=== PATIENT | female | born 1930 | race Caucasian/White ===

== ENCOUNTER → 2016-12-17 | Outpatient (CLI) | payer MEDICARE, BC ==
[~2016-12-17] MED LIST: ALPHAGAN P10 ML OP; AMBIEN PO; AMBIEN10 MG PO; AMIODARONE PO; ANASTROZOLE1 MG PO; ARIMIDEX1 MG PO; ASPIRIN81 MG PO; AZITHROMYCIN250 MG PO; BENZONATATE PO; CALAN PO; CALAN SR PO; CALAN SR180 MG PO; CALCIUM; CERTAGEN PO; CHONDROTIN; CLARITIN10 MG PO; COLACE PO; CORDARONE200 M1 PO; COUMADIN PO; COUMADIN5 MG PO; COUMADIN6 MG PO; FISH OIL 1,0001 CAP PO; FISH OIL300 MG PO; FLAGYL PO; FUROSEMIDE40 MG PO; GARLIC; GARLIC OIL1 CAP PO; GARLIC TAB; GLUCOSA; GLUCOSAMINE; LIPITOR20 MG PO; LISINOPRIL PO; LISINOPRIL1 GM PO; LISINOPRIL10 MG PO; LUMIGAN; MAG-OX 400400 M1 PO; MAGNESIUM400 MG PO; METOPROLOL TAR25 MG PO; METRONIDAZOLE PO; MIRALAX17 GM PO; MIRAPEX0.125 MG PO; MORGIDOX100 MG; MULTI VITAMIN1 EACH PO; MULTI-VITAMIN1 TAB PO; MULTIVITAMIN; NEXIUM PO; NILSTAT PO; NITROFURANTOIN100 M3 PO; OYSTER CALCIUM500 MG PO; PREDNISONE10 MG/DOSE PO; TOBREX5 ML OP; TRIMPEX100 MG PO; VEGETABLE LAXA390 GM PO; VERAPAMIL ER180 MG PO; VIACTIVE; VICODIN PO; VITAMIN D-32000 UNI1 PO; XALATAN OP; XARELTO20 MG PO; ZOLOFT PO; ZOLOFT50 MG PO; ZYLOPRIM PO; ZYRTEC PO; [UNRECOGNIZED DRUG - OTHER]; [UNRECOGNIZED DRUG - OTHER]
[2016-12-17 11:19] LABS: BASOPHIL% 0.8 % (0-2.5); EOSINOPHIL# 0.1 X10e3 (0-0.7); EOSINOPHIL% 1.5 % (0.0-7.0); HEMATOCRIT 29.6 % (35.0-45.0); HEMOGLOBIN 9.4 gm/dL (12.0-16.0); LYMPHOCYTE# 1.3 X10e3 (1.0-3.5); LYMPHOCYTE% 28.8 % (17.0-45.0); MEAN CELL VOLUME 94.4 FL (83-96); MEAN CORPUSCULAR HGB CONC 31.7 g/dL (30-36); MEAN PLATELET VOLUME 8.7 FL (6.5-11.5); MONOCYTE# 0.5 X10e3 (0-1.0); MONOCYTE% 12.4 % (3.0-12.0); NEUTROPHIL# 2.5 X10e3 (1.5-7.1); NEUTROPHIL% 56.5 % (40-75); PLATELET COUNT 133 X10e3 (140-420); RED BLOOD COUNT 3.13 X10e (3.90-5.30); RED CELL DISTRIBUTION WIDTH 21.2 % (11.0-15.5); WHITE BLOOD COUNT 4.4 X10e3 (4.0-10.5)
[2016-12-17 11:21] LABS: DIFF IND NO
[2016-12-17 12:45] LABS: BUN/CREATININE RATIO 27.5; CALCIUM SERUM 9.6 mg/dL (8.4-10.2); CREATININE SERUM 1.6 mg/dL (0.6-1.4); GLOM FILT RATE Estimated 32.3 mL/min (>60); POTASSIUM 4.7 mmol/L (3.5-5.1)
== END | disposition home or self-care (01) ==
LOC: CLAB 10:45
PROVIDERS: Internal Medicine Gastroenterology
DX: D50.8 Other iron deficiency anemias (principal)
CPT/HCPCS: 36415; 80048; 82728; 83540; 83550; 85025

== ENCOUNTER 2017-01-15 10:16 | Emergency (ER) | payer MEDICARE, BC ==
--- NOTE | ~2017-01-15 | CT4 ---
[facility] A Service of [facility] & [facility] RADIOLOGY TEXT RESULTS PATIENT: LEONARDA WALTON LOCATION: [facility] : [birth year] UNIT #: [id number] AGE: [address]: Luz Jeffries MD SEX: F ORDER DR: [id number] [facility] [address] [place], [place] [address] [id number] E MR#: [id number] Acc #: [id number] NAME: LEONARDA WALTON. : 1930 SEX: F STUDY DATE/TIME: 01/15/2017 11:12 UNIT: [facility] ROOM: STUDY DESCRIPTION: CT Abd and Pelv Wo Cont Attending Physician: Luz Jeffries M.D. Ordering Physician: Luz Jeffries M.D. Primary Care Physician: Ike Rosario M.D. MEDICAL IMAGING REPORT This report is preliminary unless electronic signature is present EXAM CT of the abdomen and pelvis without contrast media 01/15 COMPARISON September 23, 2015 HISTORY Right-sided abdominal pain beginning last evening TECHNIQUE/COMPARISON Transaxial imaging of the abdomen and pelvis was performed without contrast and compared directly to the previous studies of September 23, 2015. This CT exam was performed with one or more of the following radiation dose reduction techniques: automatic exposure control, adjustment of mA and/or kV according to patient size, and iterative reconstruction. FINDINGS Scans through the lung bases shows underlying chronic lung disease. There is advanced atherosclerotic disease in the aorta and coronary arteries. Scans through the liver parenchyma are normal. The gallbladder is absent. The spleen is normal. The adrenal glands are normal. There is an incidental upper pole cyst in the left kidney measuring 4.5 cm in greatest diameter. It is present on the patient's previous study. No other renal pathology is identified. The patient has advanced atherosclerotic disease in the mesenteric vessels particularly the splenic artery with a very tortuous abdominal aorta and atherosclerotic disease throughout the iliac systems. No dilated or thickened loops of bowel are identified in the upper abdomen. Scans through the pelvis show extensive sigmoid diverticulosis. There is no convincing evidence of diverticulitis. The uterus is absent. There are no adnexal masses or fluid collections. Terminal ileum appears STS. [facility] A Service of [facility] & [facility] RADIOLOGY TEXT RESULTS PATIENT: LEONARDA WALTON [id number] [birth year] UNIT #: [id number] AGE: [address]: Luz Jeffries MD SEX: F ORDER DR: normal. The appendix is not clearly seen. There is advanced multilevel degenerative disc disease throughout the lumbar spine and with grade 1 anterolisthesis of L4 on L5. CONCLUSION 1. Chronic lung disease at the lung bases with advanced atherosclerotic disease. 2. Status post cholecystectomy and hysterectomy. 3. Incidental 4.5 cm left renal cyst. 4. Diverticulosis without diverticulitis. 5. Scoliosis and advanced multilevel degenerative disc and facet disease. Grade 1 spondylolisthesis of L4 on L5. Dictated by... Torsten Miranda M.D. THIS IS AN ELECTRONICALLY VERIFIED REPORT Torsten Miranda M.D. at 01/17/2017 12:00 PM MOE/simeon TD: 01/15/2017 13:05 JOB #: [id number] MEDICAL IMAGING REPORT Page 1 of 1 COPY
[2017-01-15 08:53] LABS: BASOPHIL% 0.6 % (0-2.5); EOSINOPHIL% 0.6 % (0.0-7.0); HEMATOCRIT 32.6 % (35.0-45.0); HEMOGLOBIN 10.1 gm/dL (12.0-16.0); LYMPHOCYTE# 0.8 X10e3 (1.0-3.5); LYMPHOCYTE% 18.2 % (17.0-45.0); MEAN CORPUSCULAR HEMOGLOBIN 30.8 PG (28-34); MEAN CORPUSCULAR HGB CONC 31.1 g/dL (30-36); MONOCYTE# 0.3 X10e3 (0-1.0); MONOCYTE% 7.1 % (3.0-12.0); NEUTROPHIL# 3.4 X10e3 (1.5-7.1); NEUTROPHIL% 73.5 % (40-75); PLATELET COUNT 116 X10e3 (140-420); RED BLOOD COUNT 3.29 X10e (3.90-5.30); RED CELL DISTRIBUTION WIDTH 21.3 % (11.0-15.5); WHITE BLOOD COUNT 4.6 X10e3 (4.0-10.5)
[2017-01-15 08:54] LABS: DIFF IND NO
[2017-01-15 09:28] LABS: ALBUMIN SERUM 3.8 g/dL (3.5-5.0); BILIRUBIN, DIRECT 0.1 mg/dL (0.0-0.2); BILIRUBIN,INDIRECT 0.4 mg/dL (0.0-0.9); BILIRUBIN,TOTAL 0.5 mg/dL (0.2-2.0); BUN/CREATININE RATIO 24.28; CALCIUM SERUM 9.5 mg/dL (8.4-10.2); CREATININE SERUM 1.4 mg/dL (0.6-1.4); GLOM FILT RATE Estimated 33.5 mL/min (>60); PROTEIN TOTAL SERUM 7.9 g/dL (6.0-8.3)
[2017-01-15 09:59] LABS: URINE SOURCE CLEAN CATCH
[2017-01-15 10:04] LABS: URINE APPEARANCE CLEAR; URINE BILIRUBIN NEG (NEG); URINE BLOOD NEG (NEG); URINE COLOR YELLOW; URINE GLUCOSE NEG (NEG); URINE KETONE NEG (NEG); URINE LEUKOCYTE ESTERASE NEG (NEG); URINE NITRATE NEG (NEG); URINE PROTEIN NEG (NEG); URINE SPECIFIC GRAVITY 1.015 (1.003-1.035); URINE UROBILINOGEN 0.2 MG/DL (NEG)
[2017-01-15 10:16] LABS: CULTURE INDICATED? NO
== END 2017-01-15 13:26 | disposition home or self-care (01) ==
LOC: CED 10:16
DX: R10.9 Unspecified abdominal pain (principal); K21.9 Gastro-esophageal reflux disease without esophagitis; I10 Essential (primary) hypertension; I48.91 Unspecified atrial fibrillation; Z90.49 Acquired absence of other specified parts of digestive tract; Z90.710 Acquired absence of both cervix and uterus; Z98.890 Other specified postprocedural states
CPT/HCPCS: 36415; 74176; 80048; 80076; 81003; 83690; 85025; 99284

== ENCOUNTER → 2017-02-08 | Outpatient (CLI) | payer MEDICARE, BC ==
--- NOTE | ~2017-02-08 | CT71 ---
[facility] A Service [facility] RADIOLOGY TEXT RESULTS PATIENT: LEONARDA WALTON LOCATION: [facility] : [birth year] UNIT #: [id number] AGE: [address]: Ivett Echols SEX: F ORDER DR: [id number] [facility] [address] [place], [place] [address] [id number] O MR#: [id number] [facility] #: [id number] NAME: LEONARDA WALTON : 1930 SEX: F STUDY DATE/TIME: 02/08/2017 14:22 UNIT: [facility] ROOM: STUDY DESCRIPTION: CT Head Wo Contrast Attending Physician: Ivett Echols A.P.R.N. Referring Physician: Ivett Echols A.P.R.N. Ordering Physician: Ivett Echols A.P.R.N. Primary Care Physician: Ike Rosario M.D. MEDICAL IMAGING REPORT This report is preliminary unless electronic signature is present EXAM Head CT without contrast HISTORY Right-sided headache and bruising after falling 2 weeks ago. TECHNIQUE Axial images were obtained without contrast. This CT exam was performed with one or more of the following radiation dose reduction techniques: automatic exposure control, adjustment of mA and/or kV according to patient size, and iterative reconstruction. FINDINGS There is a scalp hematoma in the right frontal area. 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 There is no evidence of skull fracture. There is no evidence of mass lesion, hemorrhage or edema. No midline shift is noted. IMPRESSION No acute findings. 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 Dictated by... Calvin Napier M.D. THIS IS AN ELECTRONICALLY VERIFIED REPORT Calvin Napier M.D. at 02/08/2017 6:31 PM RLF/pcl [facility] A Service [facility] RADIOLOGY TEXT RESULTS PATIENT: LEONARDA WALTON LOCATION: [facility] : [birth year] UNIT #: [id number] AGE: [address]: Ivett Echols SEX: F ORDER DR: TD: 02/08/2017 17:30 JOB #: [id number] MEDICAL IMAGING REPORT Page 1 of 1 COPY
== END | disposition home or self-care (01) ==
LOC: CCAT 13:10
DX: R51 Headache (principal); S00.93XA Contusion of unspecified part of head, initial encounter; Z96.21 Cochlear implant status
CPT/HCPCS: 70450

== ENCOUNTER → 2017-03-26 | Outpatient (CLI) | payer MEDICARE, BC ==
[2017-03-26 10:07] LABS: HEMATOCRIT 31.2 % (35.0-45.0); MEAN CELL VOLUME 100.8 FL (83-96); MEAN CORPUSCULAR HEMOGLOBIN 32.3 PG (28-34); MEAN CORPUSCULAR HGB CONC 32.1 g/dL (30-36); MEAN PLATELET VOLUME 8.8 FL (6.5-11.5); RED BLOOD COUNT 3.1 X10e (3.90-5.30); RED CELL DISTRIBUTION WIDTH 15.8 % (11.0-15.5); WHITE BLOOD COUNT 3.6 X10e3 (4.0-10.5)
[2017-03-26 10:45] LABS: BUN/CREATININE RATIO 24.66; CALCIUM SERUM 9.5 mg/dL (8.4-10.2); CREATININE SERUM 1.5 mg/dL (0.6-1.4); GLOM FILT RATE Estimated 30.6 mL/min (>60); POTASSIUM 4.2 mmol/L (3.5-5.1)
== END | disposition home or self-care (01) ==
LOC: CLAB 09:31
PROVIDERS: Nurse Practitioner
DX: D64.9 Anemia, unspecified (principal)
CPT/HCPCS: 36415; 80048; 85027